=== PATIENT | female | born 1960 | race Hispanic/Latino ===

== ENCOUNTER 2020-01-28 11:46 | Emergency (ER) | payer OTHER ==
[~2020-01-28] VITALS: Ht 152.4 cm; Wt 67.6 kg
--- OUTSIDE RECORDS SUMMARY | 2020-01-28 11:47 | XMS REPORT | Clinical Summary ---
Author Author [facility] Organization [facility] ict Address Unknown Phone Unavailable Care Team Providers Care Payment Collector Name Role Phone Wen Gomez DDS 6 Allergies Comments Active Allergy Reactions Severity Noted Date Simvastatin (Bulk) Itching Low 10/04/2011 Medications End Date Status Medication Sig Dispensed Refills Start Date Active Calcium 600 mg cap Take 1,200 mg 0 by mouth daily. Active Cholecalciferol, Vitamin Take 1 0 D3, (VITAMIN D) 1,000 capsule by unit cap mouth daily. Active cetirizine (ZYRTEC) 10 mg Take 1 tablet 90 tablet 3 tabletIndications: by mouth 5 Allergic rhinitis, cause daily. unspecified Active albuterol (VENTOLIN Inhale 2 6.7 g 0 HFA,PROVENTIL HFA,PROAIR Puffs by 5 HFA) 90 mcg/actuation mouth 4 times inhalerIndications: daily as Asthma, unspecified needed for asthma severity, Wheezing or uncomplicated Shortness of Breath. Active hydroCHLOROthiazide Take 1 tablet 90 tablet 3 (HYDRODIURIL) 25 mg by mouth 6 tabletIndications: daily. Essential hypertension Active losartan (COZAAR) 50 mg Take 1 tablet 90 tablet 3 tabletIndications: by mouth 6 Essential hypertension daily. Active meclizine (ANTIVERT) 25 Take 1 tablet 30 tablet 0 mg TabIndications: BPPV by mouth 3 6 (benign paroxysmal times daily. positional vertigo), left Active ursodiol (ACTIGALL) 300 Take 1 90 capsule 5 mg capsuleIndications: capsule by 6 Primary biliary cirrhosis mouth 3 times daily. Active Problems Problem Noted Date Bilateral hand numbness: 11/30; 2 wk: med sgiven / bra jose c/exercsie advised / 12/03/2014 f/u with PCP Osteopenia: BMD: 01/29: on monse+vitD 12/03/2014 HTN (hypertension): stable on meds 11/3012/03/2014 GERD (gastroesophageal reflux disease) 12/03/2014 Impaired fasting blood sugar: 11/30; on diet / f/u wit h PCP 12/03/2014 HLD (hyperlipidemia) 09/16/2014 Primary biliary cirrhosis 04/23/2014 Foraminal stenosis of cervical region 01/30/2014 Overview: Mild right foraminal stenosis at C5-C6 DDD (degenerative disc disease), lumbar 01/30/2014 Overview: Bulging disc DM w/o complication type II: diet controlled 012 S/P colonoscopy: 10/3002/22/2012 Mitral valve regurgitation, rheumatic: 11/04/2010 Mitral stenosis Immunizations Name Administration Dates Next Due Albuterol 0.083% (3ml) 01/19/2011 Hib Haemophilus 09/16/2014 (Deferred: Vacci ne Unavailable) Influenzae Type B Influenza A (H1N1) Vac 08/11/2009 Injection Influenza Vaccine 06/26/2015, 07/16/2014, 05/2012, 07/22/2011, 06/15/2010, 07/03/2009, 07/16/2008 Ketorolac 30mg/1ml Inj 12/06/2006 (x ) MCV4 Meningococcal 09/16/2014 (Deferred: Vacci ne Unavailable) Conjugate (Menactra) PPV 23 Pneumococcal 09/16/2014, 01/21/2008 Polysaccaride Td Tetanus, diphtheria 12/17/2006 Toxoids Vaccine Tdap Tetanus, diphtheria, 03/22/2012 acellular pertussis Vaccine Triamcinolone 40mg/ml Inj 06/29/2010 Family History Medical History Relation Name Comments Heart Father Arthritis Mother Asthma Mother Heart Mother Hypertension Mother Stroke Paternal Grandmother Asthma Sister Cancer Sister breast cancer at ag e 51yo; taking chemo therapy now Hypertension Sister Relation Name Status Comments Brother Alive 4 Daughter Alive 2 Father Alive Maternal Grandfather Maternal Grandmother Alive Mother Alive Paternal Grandfather Paternal Grandmother Sister Alive 6 Sister Son Alive 1 Social History Date Tobacco Use Types Packs/Day Years Used Never Smoker Smokeless Tobacco: Never Used Tobacco Cessation: Counseling Given: No Drinks/Week oz/Week Comments Alcohol Use No Sex Assigned at Date Recorded Not on file Industry Job Start Date Occupation Not on file Not on file Not on file Travel End Travel History Travel Start No recent travel history available. Last Filed Vital Signs Not on file Plan of Treatment Health Maintenance Due Date Last Done Comments Colorectal Cancer Scrn 11/01/2012 11/01/2011, , 09/01/2008, Annual (FIT/FOBT) Age 50 Additional history exists to 75 DM Foot Exam (Yearly) 11/28/2012 11/29/2011, 11/16 Cervical Cancer Scrn (3 02/21/2015 02/22/2012, , 11/02/2011, Yrs) Additional history exists DM Retinal Exam (Yearly) 05/15/2016 05/15/2015, 0 11/29/2011 (Declined) Breast Cancer Scrn 06/09/2016 06/09/2015, 014, 03/19/2013, (Yearly) Additional history exists DM HGBA1C (Yearly) 09/21/2016 09/21/2015, 015, 03/13/2015, Additional history exists IMM Influenza Seasonal 06/18/2020 06/26/2012 Oct to November (>/= 19 yrs) Results Not on fileafter 01/27/2019 Insurance Type Payer Benefit Subscriber ID Effective Phone Address Plan / Dates Group [facility] SELF-PAY SELF-PAY xxxx 2015- [phone] [id number] [place] [address] (Work) Advance Directives Date Inactivated Comments Code Status Date Activated 03/07/2011 11:28 PM Full Code 03/01/2011 5:27 PM 02/25/2011 10:03 PM Full Code 02/22/2011 9:25 PM
--- OUTSIDE RECORDS SUMMARY | 2020-01-28 11:48 | XMS REPORT | Summary of Care ---
Author Author [facility] Organization [facility] Address Unknown Phone Unavailable Encounter HQ Marcin(FIN) [id number] Date(s): 12/18/17 - 12/18/17 [facility] [address], [address] [place] [address]- [phone] Discharge Disposition: Home or Self Care Attending Physician: Clarisse Barrera DO Vital Signs Most recent to 1 oldest [Reference Range]: Height 152.4 cm (12/18/17 8:06 AM) Temperature Oral 98.2 DegF [96.4-99.1 DegF] (12/18/17 8:06 AM) Blood Pressure 108/68 mmHg [90-140/60-90 mmHg] (12/18/17 8:06 AM) Respiratory Rate 14 BRMIN [14-20 BRMIN] (12/18/17 8:06 AM) Peripheral Pulse 53 bpm Rate [60-100 bpm] *LOW* (12/18/17 8:06 AM) Weight 65.455 kg (12/18/17 8:06 AM) Body Mass Index 28.18 m2 (12/18/17 8:06 AM) Problem List Condition Effective Dates Status Health Status Informan t BMI Active 28.0-28.9,adult(Conf irmed) Acid Active reflux(Confirmed) Hemorrhoids(Confirme Active d) Hypertension(Confirm Active ed) Fatty liver disease, Active nonalcoholic(Confirm ed) Prediabetes(Confirme Active d) Primary biliary Active cirrhosis(Confirmed) Allergies, Adverse Reactions, Alerts Substance Reaction Severity Status statins1 Active 1itching Medications hydrocortisone topical 2.5% cream 1 appl, TOP, BID, X 14 day, # 30 gm, 1 Refill(s), Pharmacy: [id number] Start Date: 12/18/17 Stop Date: 01/15/18 Status: Completed Results No data available for this section Immunizations Given and Recorded Vaccine Date Status Refusal Reason Hx influenza vaccine-unspecified 05/19/17 Recor ded Hx pneumococcal vaccine 09/16/14 Recorded Hx meningococcal vaccine1 09/18/12 Recorded tetanus-diphtheria toxoids 03/22/12 Recorded 1Result Comment: [12/14/2016 Uncharted] deferred Procedures Procedure Date Related Diagnosis Body Site Status Colonoscopy1 03/02/17 Completed Mammogram2 02/02/17 Completed Papanicolaou smear taken 2012 Completed Splenectomy 2009 Completed section Completed Hysterectomy Completed 1repeat 10 years 2normal 3x3 4does not need any more paps Social History Social History Type Response Substance Abuse Use: None. Exercise Exercise duration: 0. Employment/School Status: Employed. 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 Other: has disabled daughter with spina bifida. Alcohol Never Smoking Status Never smoker; Exposure to T obacco Smoke None; Cigarette Smoking Last 365 Days No; Reg Smoking Cessation Counseli ng No entered on: 03/19/18 Assessment and Plan No data available for this section
--- OUTSIDE RECORDS SUMMARY | 2020-01-28 11:48 | XMS REPORT | Summary of Care ---
Author Author [facility] Organization [facility] Address Unknown Phone Unavailable Encounter HQ Marcin(FIN) [id number] Date(s): 11/27/17 - 11/28/17 [facility] [address], [address] [place] [address]- [phone] Vital Signs No data available for this section Problem List Condition Effective Dates Status Health Status Informan t BMI Active 28.0-28.9,adult(Conf irmed) Acid Active reflux(Confirmed) Hemorrhoids(Confirme Active d) Hypertension(Confirm Active ed) Fatty liver disease, Active nonalcoholic(Confirm ed) Prediabetes(Confirme Active d) Primary biliary Active cirrhosis(Confirmed) Allergies, Adverse Reactions, Alerts Substance Reaction Severity Status statins1 Active 1itching Medications hydrochlorothiazide 25 mg oral tablet 12.5 mg = 0.5 tab, PO, Daily, # 90 tab, Refill(s) 1, Pharmacy: [id number] Start Date: 11/27/17 Status: Ordered losartan 50 mg oral tablet See Instructions, # 90 tab, Refill(s) 1, TAKE 1 TABLET BY MOUTH DAILY, Pharmacy: [id number] Start Date: 11/27/17 Status: Ordered ursodiol 300 mg oral capsule See Instructions, # 270 unknown unit, Refill(s) 1, TAKE 1 CAPSULE BY MOUTH 3 JUAN JOSE ES A DAY, Pharmacy: [id number] Start Date: 11/27/17 Status: Ordered Results No data available for this section Immunizations Given and Recorded Vaccine Date Status Refusal Reason Hx influenza vaccine-unspecified 05/19/17 Recor ded Hx pneumococcal vaccine 09/16/14 Recorded Hx meningococcal vaccine1 09/18/12 Recorded tetanus-diphtheria toxoids 03/22/12 Recorded 1Result Comment: [12/14/2016 Uncharted] deferred Procedures Procedure Date Related Diagnosis Body Site Status Colonoscopy1 03/02/17 Completed Mammogram2 02/02/17 Completed Papanicolaou smear taken 2012 Completed Splenectomy 2009 Completed section3 Completed Hysterectomy4 Completed 1repeat 10 years 2normal 3x3 4does not need any more paps Social History Social History Type Response Substance Abuse Use: None. Exercise Exercise duration: 0. Employment/School Status: Employed. 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 Alcohol Never Smoking Status Never smoker; Exposure to T obacco Smoke None; Cigarette Smoking Last 365 Days No; Reg Smoking Cessation Counseli ng No entered on: 12/18/17 Assessment and Plan No data available for this section
--- OUTSIDE RECORDS SUMMARY | 2020-01-28 11:48 | XMS REPORT | Summary of Care ---
Author Author [facility] Organization [facility] Address Unknown Phone Unavailable Encounter TIMOTHY Burch(DILLON) [id number] Date(s): 01/16/18 - 01/16/18 [facility] [address] [place] [address]- Encounter Diagnosis Encounter for screening mammogram for malignant neoplasm of breast (Final) - Discharge Disposition: Home or Self Care Attending Physician: Clarisse Barrera DO Referring Physician: Clarisse Barrera DO Vital Signs No data available for this section Problem List Condition Effective Dates Status Health Status Informan t BMI Active 28.0-28.9,adult(Conf irmed) Acid Active reflux(Confirmed) Hemorrhoids(Confirme Active d) Hypertension(Confirm Active ed) Fatty liver disease, Active nonalcoholic(Confirm ed) Prediabetes(Confirme Active d) Primary biliary Active cirrhosis(Confirmed) Allergies, Adverse Reactions, Alerts Substance Reaction Severity Status statins1 Active 1itching Medications No data available for this section Results No data available for this section [...] 365 Days No; Reg Smoking Cessation Counseli mattie No entered on: 12/18/17 Assessment and Plan No data available for this section
--- OUTSIDE RECORDS SUMMARY | 2020-01-28 11:48 | XMS REPORT | Continuity of Care Document ---
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 Role Phone [employer] Information [employer] Unavailable Un available Problems Problem Status Onset Date Classification Date Reported Comments Source Fatty (change of) liver, not elsewhere classified 05/01/2018 11/11/2018 [facility] [place] DX: SCREENING Active 12/27/2017 [facility] UNK Active 0 12/28/2016 [facility] ROUTINE SCREENING WILL BRING OUTSIDE F Active 12/12/2016 [facility] Hepatomegaly, not elsewhere classified 11/11/2018 [facility] [place] Overweight 11/11/2018 [facility] [place] Body mass index (BMI) 28.0-28.9, adult 11/11/2018 [facility] [place] Essential (primary) hypertension 11/11/2018 [facility] [place] Liver disease, unspecified 11/11/2018 [facility] [place] Body mass index index 25-29 - overweight (finding) Active Problem 02/26/2019 [facility], [facility] [place] Gastroesophageal reflux disease (disorder) Active Problem 02/26/2019 [facility], [facility] [place] Hemorrhoids (disorder) Active Problem 02/26/2019 [facility] [place] Hypertensive disorder, systemic arterial (disorder) Active Problem 02/26/2019 [facility], [facility] [place] Non-alcoholic fatty liver (disorder) Active Problem 07/2019 [facility], [facility] [place] Prediabetes (finding) Active Problem 02/26/2019 [facility] [place] Primary biliary cirrhosis (disorder) Active Problem 07/2019 [facility], [facility] [place] Encounter for screening mammogram for ma lignant neoplasm of breast 01/19/2018 [facility] Senile angioma (disorder) Acti ve Problem 07/2019 [facility] [place] Medications Medication Details Route Status Patient Instructions Ordering Provider Order Date Source Triamcinolone Acetonide 1 MG/ML Topical Cream 1 appl, TOP, BID, PRN For Rash, X 14 day, # 454 gm, 1 Refill(s), [id number] No Longer Active 08/08/2018 [facility] amoxicillin 500 mg oral tablet 500 mg = 1 tab, PO, BID, X 10 day, # 20 tab, 0 Refill(s), [id number] Active 03/19/2018 [facility] Brompheniramine Maleate 0.4 MG/ML / Dext romethorphan Hydrobromide 2 MG/ML / Pseudoephedrine Hydrochloride 6 MG/ML Oral Solution [Bromfed DM] 5 mL, PO, TID, PRN cough, X 14 day, # 20 0 mL, 0 Refill(s), [id number] Active 03/19/2018 [facility] omeprazole 20 mg oral delayed release capsule See Instructions, # 30 unknown unit, TAKE ONE CAPSULE BY MOUTH EVERY DAY, [id number] Active 02/19/2018 [facility] omeprazole 20 mg oral delayed release capsule 20 mg = 1 cap, PO, Daily, # 90 cap, 1 Refill(s), [id number] Inactive 02/19/2018 [facility] Hydrocortisone 25 MG/ML Topical Cream 1 appl, TOP, BID, X 14 day, # 30 gm, 1 Refill(s), [id number] No Longer Active 12/18/2017 [facility] omeprazole 20 mg oral delayed release capsule 20 mg = 1 cap, PO, Daily, # 30 cap, 1 Refill(s), [id number] No Longer Active 12/17/2017 [facility] ursodiol 300 mg oral capsule S ee Instructions, # 270 unknown unit, Refill(s) 1, TAKE 1 CAPSULE BY MOUTH 3 TIMES A DAY, [id number] Active 11/27/2017 [facility] Hydrochlorothiazide 25 MG Oral Tablet 12.5 mg = 0.5 tab, PO, Daily, # 90 tab, Refill(s) 1, [id number] Active 11/27/2017 [facility] losartan 50 mg oral tablet See Instructions, # 90 tab, Refill(s) 1, TAKE 1 TABLET BY MOUTH DAILY, [facility]: [facility]/pharm[facility] #[id number] Active 11/27/2017 [facility] Hydrochlorothiazide 25 mg, PO, Daily, 0 Refill(s) Active 03/02/2017 [facility] Albuterol 0.833 MG/ML / Ipratropium Brom porfirio 0.167 MG/ML Inhalant Solution 3 mL, Route: NEB, Dosing Weight 62.727, kg, ONCE, STAT, Start date: 03/02/17 8:06:00 CDT, Stop date: 03/02/17 8:06:00 CDT Inactive 03/02/2017 [facility] Sodium Chloride 0.154 MEQ/ML Injectable Solution 500 mL, Rate: 25 ml/hr, Infuse over: 20 hr, Route: IV, Dosing Weight 62.727 kg, Total Volume: 500, Start date: 03/02/17 8:06:00 CDT, Duration: 30 day, Stop date: 04/01/17 8:05:00 CDT Inactive 03/02/2017 [facility] Allergies, Adverse Reactions, Alerts Substance Category Reaction Severity Reaction type Status Date Reported Comments Source statins<sup>1</sup> Assertion Drug allergy Active itch ing [facility] Immunizations Immunization Date Given Site Status Last Updated Comments Source Hx influenza vaccine-unspecified 05/19/2017 completed [facility] Hx pneumococcal vaccine 2013 completed [facility] Hx meningococcal vaccine<sup>1</sup> 09/18/2012 [facility] Result Comment: [12/14/2016 Uncharted] [facility] theast tetanus-diphtheria toxoids 01/2012 completed [facility] Results No Data Provided for This Section Pathology Reports No Data Provided for This Section Diagnostic Reports Report Value Date Source Abdomen w/wo contrast MRI EVARISTO CATION: - K76.0 Fatty (change of) liver, not elsewhere classified, E66.3 Overweight,R16.0 Hepatomegaly, not elsewhere classified ,I10 Essential (primary) hypertension. COMPARISON: Abdomen ultrasound dated 02/22/2008 TECHNIQUE: Multiplanar multisequential MR images of the abdomen were obtained with and without intravenous contrast administration. Contrast: 13 mL Dotarem FINDINGS: Lines and tubes: None. Lower thorax: Unremarkable. Liver and biliary tree: 4 round and oval lesions are identified along the capsule of the right hepatic lobe. There are 3 located in segment 7 measuring approximately 2.8 x 3.4 cm, 1.9 x 1.9 cm, and 1.2 x 1.8 cm in axial dimension. There is a smaller 1 cm lesion in segment 7/6. There is also a 1 cm lesion in the left hepatic lobe along the falciform ligament in segment 3. The lesions are mildly T2 hyperintense and mildly T1 hypointense. They demonstrate diffuse early arterial enhancement, but subsequently become isointense to the liver. A T1 hyperintense capsule persists on all phases. Gallbladder: Normal. No MR evidence of gallstones. Pancreas: Normal. Spleen: Absent. 1.2 cm enhancing nodule in the splenectomy bed Adrenals: Normal. Kidneys and proximal ureters: Normal. No hydronephrosis. Gastrointestinal tract: Unremarkable with normal caliber. Peritoneum and retroperitoneum: No ascites or free air. 2.7 x 1.8 cm enhancing nodule in the anterior mesentery. Lymph nodes: No pathologic adenopathy. Vasculature: Unremarkable. Bones: No acute abnormality. Soft tissues: Unremarkable. IMPRESSION: 4 well-circumscribed nodules along the m argin of the liver as described. These may in fact be located on the liver as opposed to in the liver in which case they are implants. 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 Correlate clinically. If there is no other history of malignancy, these can likely be followed. Tissue sampling would confirm the diagnosis, although this may be technically difficult. 04/24/2018 [facility] Rob[facility] Abdomen complete US Abdomen co mplete US 02/21/2018 10:13 AM CDT CLINICAL: K74.3 Primary biliary cirrhosis COMPARISON IMAGING: None. FINDINGS: Liver: Measures 18.0 cm in length (normal: 13-17 cm). Echogenicity is unremarkable . 2 hypoechoic regions are seen within the liver, measuring 4.1 x 3.8 x 3.0 cm and 0.9 x 0.9 x 0.9 cm. Short-term follow-up MRI of the abdomen with liver mass protocol is recommended. Portal vein is patent with hepatopetal flow. Biliary: No gallstones, gallbladder wall thickening, or sonographic Velasco's sign . Common bile duct measures 0.4 mm in diameter. Pancreas: No focal lesion. However, certain portions are obscured by overlying bowel gas and unable to be evaluated. Spleen: Measures 6.4 cm in maximal dimension (normal < 13 cm). No focal lesion is seen. Kidneys: Right kidney measures 11.1 cm in length and shows normal echotexture. No right hydronephrosis is seen. Left kidney measures 11.3 cm in length and shows normal echotexture. No left hydronephrosis is seen. Vascular: Visualized portions of the aorta and IVC are patent. IMPRESSION: 1. Gallbladder and biliary ductal system are unremarkable. 2. 2 hypoechoic regions are seen within the liver, measuring 4.1 x 3.8 x 3.0 cm and 0.9 x 0.9 x 0.9 cm. Short-term follow-up MRI of the abdomen with liver mass protocol is recommended. 02/21/2018 [facility] [place] Breast Mammo Scrn PUAL incl CAD MA BILATERAL DIGITAL SCREENING MAMMOGRAM WITH CAD: 01/16/2018 Current study was evaluated with a Computer Aided Detection (CAD) system. COMPARISON:Comparison is made to exams dated: 01/13/2017 mammogram - [facility], 06/09/2015 mammogram, 04/04/2014 mammogram, and 09/06/2011 mammogram. TECHNIQUE: Mammographic views were obtained using digital acquisition. [employer] Version 1.3 was utilized for computer aided detection. FINDINGS: There are scattered fibroglandular densities in both breasts. Benign appearing densities are noted in both breasts. No significant masses, calcifications, or other findings are seen in either breast. There has been no significant interval change. IMPRESSION: BENIGN RECOMMENDATION:There is no mammographic evidence of malignancy. A 1 year screening mammogram is recommended.(01/17/2019) This exam was interpreted at [id number] for [facility]. Ivan aguirre/tahir:01/16/2018 15:38:38 Nutrition Specialist(s): Emma Gamboa, [facility] letter sent: BI-RADS 1/2 Mammogram BI-RADS: 2 Benign 01/16/2018 [facility] Breast Mammo Scrn PAUL incl CAD MA - BREAST MAMMO SCRN PAUL INCL CAD MA BILATERAL DIGITAL SCREENING MAMMOGRAM WITH CAD: 01/13/2017 CLINICAL: Routine. Current study was evaluated with a Computer Aided Detection (CAD) system. Comparison is made to exams dated: 06/09/2015 mammogram, 04/04/2014 mammogram and 09/06/2011 mammogram. There are scattered fibroglandular densities in both breasts. No significant masses, calcifications, or other findings are seen in either breast. There has been no significant interval change. IMPRESSION: NEGATIVE There is no mammographic evidence of malignancy. A 1 year screening mammogram is recommended. Ivan aguirre/tahir:02/02/2017 08:28:22 Nutrition Specialist: Pratibha Patel, [facility] This exam was dictated and interpreted by [id number] for [facility] [place]. letter sent: Normal exam Mammogram BI-RADS: 1 Negative 01/13/2017 [facility] Consultation Notes No Data Provided for This Section Discharge Summaries No Data Provided for This Section History and Physicals No Data Provided for This Section Vital Signs Vital Sign Value Date Comments Source Weight 66.364 08/08/2018 [facility] BMI Calculated 28.57 08/08/2018 [facility] Systolic (mm Hg) 121 08/08/2018 [facility] Diastolic (mm Hg) 71 08/08/2018 [facility] Respitory Rate 14 08/08/2018 Medical [facility] Heart Rate 56 08/08/2018 Medical [facility] Height 152.4 cm 08/08/2018 [facility] Weight 67.273 03/19/2018 [facility] Height 152.4 cm 03/19/2018 [facility] BMI Calculated 28.96 03/19/2018 [facility] Temperature Oral (F) 98.2 F 03/19/2018 [facility] Respitory Rate 14 03/19/2018 [facility] Systolic (mm Hg) 123 03/19/2018 [facility] Diastolic (mm Hg) 68 03/19/2018 [facility] Heart Rate 63 03/19/2018 [facility] Height 152.4 cm 12/18/2017 [facility] Weight 65.455 12/18/2017 [facility] BMI Calculated 28.18 12/18/2017 [facility] Systolic (mm Hg) 108 12/18/2017 [facility] Diastolic (mm Hg) 68 12/18/2017 [facility] Temperature Oral (F) 98.2 F 12/18/2017 [facility] Heart Rate 53 12/18/2017 [facility] Respitory Rate 14 12/18/2017 [facility] BMI Calculated 28.38 12/12/2017 [facility] Weight 65.909 12/12/2017 [facility] Height 152.4 cm 12/12/2017 [facility] Systolic (mm Hg) 131 12/12/2017 [facility] Diastolic (mm Hg) 75 12/12/2017 [facility] Heart Rate 69 12/12/2017 [facility] Respitory Rate 14 12/12/2017 [facility] Temperature Oral (F) 98.3 F 12/12/2017 [facility] Respitory Rate 21 03/02/2017 [facility] Systolic (mm Hg) 101 03/02/2017 [facility] Diastolic (mm Hg) 58 03/02/2017 [facility] Systolic (mm Hg) 86 03/02/2017 [facility] Diastolic (mm Hg) 55 03/02/2017 [facility] Respitory Rate 15 03/02/2017 [facility] Systolic (mm Hg) 86 03/02/2017 [facility] Diastolic (mm Hg) 55 03/02/2017 [facility] Respitory Rate 17 03/02/2017 [facility] Heart Rate 62 02/27/2017 [facility] Temperature Oral (F) 98.1 F 02/27/2017 [facility] Height 157.48 cm 02/27/2017 [facility] BMI Calculated 25.29 02/27/2017 [facility] Weight 62.727 02/27/2017 [facility] Encounters Location Location Details Encounter Type Encounter Number Reason For Visit Attending Provider ADM Date DC Date Status Source Outpatient [id number] ARUNA COLESH 12/05/2016 [facility] Outpatient [id number] ARUNA COLESH 12/08/2016 [facility] Outpatient [id number] ARUNA BRUCE 01/03/2017 [facility] Outpatient [id number] Aruna Colesh 01/13/2017 01/14/2017 [facility] Bedded Outpatient [id number] Salvador Corley 03/02/2017 03/02/2017 [facility] Outpatient [id number] ARUNA COLESH 05/23/2017 Active [facility] Phone Message [id number] 11/27/2017 11/29/2017 [facility] Outpatient [id number] ARUNA COLESH 12/12/2017 Active [facility] Outpatient [id number] Aruna Bruce 12/12/2017 12/13/2017 Medical [facility] Outpatient [id number] ARUNA COLESH 12/18/2017 Active [facility] Outpatient [id number] Aruna Colesh 12/18/2017 12/19/2017 [facility] Group [facility] Outpatient [id number] Aruna Colesh 01/16/2018 01/17/2018 [facility]patient Imaging - [place] [facility] Services [id number] Nish Melendez 02/21/2018 02/22/2018 [facility] [place] Outpatient [id number] ARUNA COLESH 03/19/2018 Active [facility] Outpatient [id number] Aruna Colesh 03/19/2018 03/20/2018 Medical [facility] Outpatient Imaging - [place] Outpt Diag Services [id number] Nish Melendez 04/24/2018 04/25/2018 [facility] [place] Outpatient [id number] ARUNA COLESH 08/08/2018 Active [facility] Outpatient [id number] Aruna Colesh 08/08/2018 08/09/2018 Medical [facility] Procedures Procedure Code Date Perfomer Comments Source Colonoscopy<sup>1, 2</sup> [id number] 01/19/2019 repeat 10 yearsrepeat 10 years Medical [facility] Colonoscopy<sup>1</sup> [id number] 03/02/2017 repeat 10 years [facility], [facility] Rob[facility] [place] [facility] Mammogram<sup>2</sup> [id number] 02/02/2017 normal [facility], [facility] [place] [facility] Mammogram<sup>3</sup> [id number] 02/02/2017 normal [facility] Mammogram<sup>1</sup> [id number] 07/19/2015 normal [facility] Papanicolaou smear taken 15180 8002 09/18/2012 [facility], JOHN Robbins, [place] [facility] Splenectomy [id number] 09/18/2009 [facility], OPIVaishnavi [facility], [place] section<sup>2</sup> 1 [id number] x3 [place] Hysterectomy<sup>3</sup> 87802 6002 does not n eed any more paps [place] section<sup>3</sup> 1 [id number] x3 [facility], OPIVaishnavi [place], [place] [facility] Hysterectomy<sup>4</sup> 77247 6002 does not n eed any more paps [facility], [facility] [place], [place] [facility] section<sup>4</sup> 1 [id number] x3 [facility] Hysterectomy<sup>5</sup> 26525 6002 does not n eed any more paps Medical [facility] Assessment and Plan No Data Provided for This Section Plan of Care No Data Provided for This Section Social History Social History Date Source Social History TypeResponse Substance Abuse Use: None. Exercise Exercise duration: 0. Employment/School Status: Employed. 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 Alcohol Never Smoking Status Never smoker; Exposure to Tobacco Smoke None; Cigarette Smoking Last 365 Days No; Reg Smoking Cessation Counseling No entered on: 12/18/17 02/27/2017 [facility] Social History TypeResponse Substance Abuse Use: None. Exercise Exercise duration: 0. Employment/School Status: Employed. 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 Alcohol Never Smoking Status Never smoker; Exposure to Tobacco Smoke None; Cigarette Smoking Last 365 Days No; Reg Smoking Cessation Counseling No entered on: 08/08/18 02/27/2017 [facility] Social History TypeResponse Substance Abuse Use: None. Exercise Exercise duration: 0. Employment/School Status: Employed. 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 Alcohol Never Smoking Status Never smoker; Exposure to Tobacco Smoke None; Cigarette Smoking Last 365 Days No; Reg Smoking Cessation Counseling No entered on: 08/08/18 02/27/2017 [facility] Family History No Data Provided for This Section Advance Directives No Data Provided for This Section Functional Status No Data Provided for This Section
--- OUTSIDE RECORDS SUMMARY | 2020-01-28 11:48 | XMS REPORT | Summary of Care ---
Author Author [facility] Organization [facility] Address Unknown Phone Unavailable Encounter TIMOTHY Burch(FIN) [id number] Date(s): 03/19/18 - 03/19/18 [facility] [address], [address] [place] [address]- [phone] Discharge Disposition: Home or Self Care Attending Physician: Clarisse Barrera DO Vital Signs Most recent to 1 oldest [Reference Range]: Height 152.4 cm (03/19/18 3:41 PM) Temperature Oral 98.2 DegF [96.4-99.1 DegF] (03/19/18 3:41 PM) Blood Pressure 123/68 mmHg [90-140/60-90 mmHg] (03/19/18 3:41 PM) Respiratory Rate 14 BRMIN [14-20 BRMIN] (03/19/18 3:41 PM) Peripheral Pulse 63 bpm Rate [60-100 bpm] (03/19/18 3:41 PM) Weight 67.273 kg (03/19/18 3:41 PM) Body Mass Index 28.96 m2 (03/19/18 3:41 PM) Problem List Condition Effective Dates Status Health Status Informan t BMI Active 28.0-28.9,adult(Conf irmed) Acid Active reflux(Confirmed) Hemorrhoids(Confirme Active d) Hypertension(Confirm Active ed) Fatty liver disease, Active nonalcoholic(Confirm ed) Prediabetes(Confirme Active d) Primary biliary Active cirrhosis(Confirmed) Allergies, Adverse Reactions, Alerts Substance Reaction Severity Status statins1 Active 1itching Medications amoxicillin 500 mg oral tablet 500 mg = 1 tab, PO, BID, X 10 day, # 20 tab, 0 Refill(s), Pharmacy: [facility]/pharmacy #[id number] Start Date: 03/19/18 Stop Date: 03/29/18 Status: Ordered Bromfed DM oral syrup 5 mL, PO, TID, PRN cough, X 14 day, # 200 mL, 0 Refill(s), Pharmacy: [facility]/pharmac y #[id number] Start Date: 03/19/18 Stop Date: 04/02/18 Status: Ordered Results No data available for [...] Exercise Exercise duration: 0. Employment/School Status: Employed. 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 Alcohol Never Smoking Status Never smoker; Exposure to T obacco Smoke None; Cigarette Smoking Last 365 Days No; Reg Smoking Cessation Counseli ng No entered on: 03/19/18 Assessment and Plan No data available for this section
--- OUTSIDE RECORDS SUMMARY | 2020-01-28 11:48 | XMS REPORT | Summary of Care ---
Author Author [facility] Organization [facility] Address Unknown Phone Unavailable Encounter TIMOTHY Burch(FIN) [id number] Date(s): 12/12/17 - 12/12/17 [facility] [address], [address] [place] [address]- [phone] Discharge Disposition: Home or Self Care Attending Physician: Clarisse Barrera DO Vital Signs Most recent to 1 oldest [Reference Range]: Height 152.4 cm (12/12/17 3:53 PM) Temperature Oral 98.3 DegF [96.4-99.1 DegF] (12/12/17 3:53 PM) Blood Pressure 131/75 mmHg [90-140/60-90 mmHg] (12/12/17 3:53 PM) Respiratory Rate 14 BRMIN [14-20 BRMIN] (12/12/17 3:53 PM) Peripheral Pulse 69 bpm Rate [60-100 bpm] (12/12/17 3:53 PM) Weight 65.909 kg (12/12/17 3:53 PM) Body Mass Index 28.38 m2 (12/12/17 3:53 PM) Problem List Condition Effective Dates Status Health Status Informan t BMI Active 28.0-28.9,adult(Conf irmed) Acid Active reflux(Confirmed) Hemorrhoids(Confirme Active d) Hypertension(Confirm Active ed) Fatty liver disease, Active nonalcoholic(Confirm ed) Prediabetes(Confirme Active d) Primary biliary Active cirrhosis(Confirmed) Allergies, Adverse Reactions, Alerts Substance Reaction Severity Status statins1 Active 1itching Medications omeprazole 20 mg oral delayed release capsule See Instructions, # 30 unknown unit, TAKE ONE CAPSULE BY MOUTH EVERY DAY, Pharma [facility]: [facility] #[id number] Start Date: 02/19/18 Status: Ordered omeprazole 20 mg oral delayed release capsule 20 mg = 1 cap, PO, Daily, # 30 cap, 1 Refill(s), Pharmacy: [facility]/pharmacy #[id number] Start Date: 12/17/17 Stop Date: 02/19/18 Status: Completed omeprazole 20 mg oral delayed release capsule 20 mg = 1 cap, PO, Daily, # 90 cap, 1 Refill(s), Pharmacy: [facility]/pharmacy #[id number] Start Date: 02/19/18 Stop Date: 02/19/18 Status: Completed Results No data available for [...]
--- OUTSIDE RECORDS SUMMARY | 2020-01-28 11:48 | XMS REPORT | Summary of Care ---
Author Author [facility] - [facility] Organization [facility] - [facility] Address Unknown Phone Unavailable Encounter HQ Marcin(FIN) [id number] Date(s): 04/24/18 - 04/24/18 [facility] Outpatient Imaging - [place] [address], [place] [address] [phone] Encounter Diagnosis Fatty (change of) liver, not elsewhere classified (Final) - 04/30/18 Hepatomegaly, not elsewhere classified (Final) - Overweight (Final) - Body mass index (BMI) 28.0-28.9, adult (Final) - Essential (primary) hypertension (Final) - Liver disease, unspecified (Final) - Discharge Disposition: Home or Self Care Attending Physician: Nish Melendez MD Referring Physician: Nish Melendez MD Vital Signs No data available for this section Problem List Condition Effective Dates Status Health Status Informan t BMI Active 28.0-28.9,adult(Conf irmed) Acid Active reflux(Confirmed) Hemorrhoids(Confirme Active d) Hypertension(Confirm Active ed) Fatty liver disease, Active nonalcoholic(Confirm ed) Prediabetes(Confirme Active d) Primary biliary Active cirrhosis(Confirmed) [place] Active angioma(Confirmed) Allergies, Adverse Reactions, Alerts Substance Reaction Severity [...] Smoking Cessation Counseli ng No entered on: 08/08/18 Assessment and Plan No data available for this section
--- OUTSIDE RECORDS SUMMARY | 2020-01-28 11:48 | XMS REPORT | Summary of Care ---
Author Author [facility] Organization [facility] Address Unknown Phone Unavailable Encounter HQ Marcin(FIN) [id number] Date(s): 08/08/18 - 08/08/18 [facility] [address] [place] [address]- Discharge Disposition: Home or Self Care Attending Physician: Clarisse Barrera DO Vital Signs Most recent to 1 oldest [Reference Range]: Height 152.4 cm (08/08/18 10:33 AM) Blood Pressure 121/71 mmHg [90-140/60-90 mmHg] (08/08/18 10:33 AM) Respiratory Rate 14 BRMIN [14-20 BRMIN] (08/08/18 10:33 AM) Peripheral Pulse 56 bpm Rate [60-100 bpm] *LOW* (08/08/18 10:33 AM) Weight 66.364 kg (08/08/18 10:33 AM) Body Mass Index 28.57 m2 (08/08/18 10:33 AM) Problem List Condition Effective Dates Status Health Status Informan t BMI Active 28.0-28.9,adult(Conf irmed) Acid Active reflux(Confirmed) Hemorrhoids(Confirme Active d) Hypertension(Confirm Active ed) Fatty liver disease, Active nonalcoholic(Confirm ed) Prediabetes(Confirme Active d) Primary biliary Active cirrhosis(Confirmed) [place] Active angioma(Confirmed) Allergies, Adverse Reactions, Alerts Substance Reaction Severity Status statins1 Active 1itching Medications triamcinolone topical 0.1% cream 1 appl, TOP, BID, PRN For Rash, X 14 day, # 454 gm, 1 Refill(s), Pharmacy: [id number] Start Date: 08/08/18 Stop Date: 09/05/18 Status: Completed Results No data available for this section Immunizations Given and Recorded Vaccine Date Status Refusal Reason Hx influenza vaccine-unspecified 05/19/17 Recor ded Hx pneumococcal vaccine 09/16/14 Recorded Hx meningococcal vaccine1 09/18/12 Recorded tetanus-diphtheria toxoids 03/22/12 Recorded 1Result Comment: [12/14/2016 Uncharted] deferred Procedures Procedure Date Related Diagnosis Body Site Status Colonoscopy1, 2 01/19/19 Completed Mammogram3 02/02/17 Completed Papanicolaou smear taken 2012 Completed Splenectomy 2009 Completed section Completed Hysterectomy Completed 1repeat 10 years 2repeat 10 years 3normal 4x3 5does not need any more paps Social History Social History Type Response Substance Abuse Use: None. Exercise Exercise duration: 0. Employment/School Status: Employed. 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 Alcohol Never Smoking Status Never smoker; Exposure to T obacco Smoke None; Cigarette Smoking Last 365 Days No; Reg Smoking Cessation Counseli ng No entered on: 08/08/18 Assessment and Plan No data available for this section
--- OUTSIDE RECORDS SUMMARY | 2020-01-28 11:48 | XMS REPORT | Summary of Care ---
Author Author [facility] Organization [facility] Address Unknown Phone Unavailable Encounter HQ Encntr_alias(FIN) [id number] Date(s): 01/13/17 - 01/13/17 [facility] [address] [place] [address]- [phone] Discharge Disposition: Home or Self Care Attending Physician: Clarisse Barrera DO Referring Physician: Clarisse Barrera DO Vital Signs No data available for this section Problem List No data available for this section Allergies, Adverse Reactions, Alerts No data available for this section Medications No data available for this section Results No data available for this section Immunizations No data available for this section Procedures No data available for this section Social History No data available for this section Assessment and Plan No data available for this section
--- OUTSIDE RECORDS SUMMARY | 2020-01-28 11:48 | XMS REPORT | Summary of Care ---
Author Author [facility] Organization [facility] Address Unknown Phone Unavailable Encounter TIMOTHY Burch(DILLON) [id number] Date(s): 03/02/17 - 03/02/17 [facility] [address] [place] [address]- Discharge Disposition: Home or Self Care Attending Physician: Salvador Corley MD Referring Physician: Salvador Corley MD Vital Signs 1 2 3 Most recent to oldest [Reference Range]: 157.48 cm (02/27/17 3:46 PM) Height 98.1 DegF (02/27/17 3:56 PM) Temperature Oral [96.4-99.1 DegF] 101/58 mmHg (03/02/17 10:30 AM) 86/55 mmHg *LOW* (03/02/17 10:17 AM) 86/55 mmHg *LOW* (03/02/17 10:15 AM) Blood Pressure [90-140/60-90 mmHg] 21 BRMIN *HI* (03/02/17 10:30 AM) 15 BRMIN (03/02/17 10:15 AM) 17 BRMIN (03/02/17 10:00 AM) Respiratory Rate [14-20 BRMIN] 62 bpm (02/27/17 3:56 PM) Peripheral Pulse Rate [60-100 bpm] 62.727 kg (02/27/17 3:46 PM) Weight 25.29 m2 (02/27/17 3:46 PM) Body Mass Index Problem List Condition Effective Dates Status Health Status Informan t Acid Active reflux(Confirmed) Cirrhosis, primary Active biliary(Confirmed) HTN Active (hypertension)(Confi rmed) Hypertension(Confirm Active ed) Fatty liver disease, Active nonalcoholic(Confirm ed) Prediabetes(Confirme Active d) Allergies, Adverse Reactions, Alerts Substance Reaction Severity Status statins1 Active 1itching Medications albuterol-ipratropium 2.5-0.5 mg inhalation solution 3 mL, Route: NEB, Dosing Weight 62.727, kg, ONCE, STAT, Start date: 03/02/17 8:0 6:00 CDT, Stop date: 03/02/17 8:06:00 CDT Start Date: 03/02/17 Stop Date: 03/02/17 Status: Discontinued hydrochlorothiazide 25 mg, PO, Daily, 0 Refill(s) Start Date: 03/02/17 Status: Ordered Sodium Chloride 0.9% IV 500 mL 500 mL, Rate: 25 ml/hr, Infuse over: 20 hr, Route: IV, Dosing Weight 62.727 kg, Total Volume: 500, Start date: 03/02/17 8:06:00 CDT, Duration: 30 day, Stop date : 04/01/17 8:05:00 CDT Start Date: 03/02/17 Stop Date: 03/02/17 Status: Discontinued Results No data available for this section Immunizations Given and Recorded Vaccine Date Status Refusal Reason Hx meningococcal vaccine1 09/18/12 Recorded Hx pneumococcal vaccine 09/16/14 Recorded tetanus-diphtheria toxoids 03/22/12 Recorded 1Result Comment: [12/14/2016 Uncharted] deferred Procedures Procedure Date Related Diagnosis Body Site Mammogram1 07/19/15 Papanicolaou smear taken 2012 Splenectomy 2009 section2 Hysterectomy3 1normal 2x3 3does not need any more paps Social History Social History Type Response Substance Abuse Use: None. Exercise Exercise duration: 0. Employment/School Status: Employed. 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 Other: has disabled daughter with spina bifida. Alcohol Never Smoking Status Never smoker; Exposure to T obacco Smoke None; Cigarette Smoking Last 365 Days No; Reg Smoking Cessation Counseli ng No Assessment and Plan No data available for this section
--- NOTE | 2020-01-28 12:14 | NUR ---
interpretur [id number] used when interviewing patient
--- NOTE | 2020-01-28 12:17 | Emergency Department Note ---
History of Present Illnes History of Present Illness Chief Complaint: hurting tail bone and right knee Stated Complaint: FALL, BACK AND LEG PAIN History of Present Illness This is a 59 year old female hx HTN, GERD, accidentally fell yesterday in a grocery store, slipped on a slippery stuff ( a grape). She landed on her right knee then sat on her tail bone. She was told by her PCP to come to ER for higher level of care Historian: Patient History limited by: language barrier Flake Miller Helper Required: Yes Onset (how long ago): day(s) (yesterday) Location: tail bone, right knee Quality: sharp Radiation: non-radiation Severity: moderate (5/10) Duration (how long): day(s) (1 day) Progression: improving Chronicity: new Context: trauma/injury Relieving factors: immobilization, medication, rest Exacerbating factors: movement Associated symptoms: denies other symptoms Treatments prior to arrival: none Previous service: other (sent over by her PCP for higher level of care) Past Medical/Family History Physician Review I have reviewed the patient's past medical and family history. Any updates have been documented here. Past Medical History Recent Fever: No Clinical Suspicion of Infectio: No New/Unexplained Change in Ment: No Past Medical History: Hypertension Other Medical History: GERD Past Surgical History: Hysterectomy Social History Smoking Cessation: Never Smoker Alcohol Use: None Any Illegal Drug Use: No TB Exposure/Symptoms: No Physically hurt or threatened: No Family History Family history of heart diseas: No Other Last Tetanus: unknown Any Pre-Existing Lines (PICC,: No Review of Systems Review of Systems Constitutional: no symptoms EENTM: no symptoms Cardiovascular: no symptoms Gastointestinal/Abdominal: no symptoms Genitourinary: no symptoms Musculoskeletal: back pain (lower back pain), joint pain (right knee pain, lower tail bone pain), joint swelling (right knee swollen) Integumentary: no symptoms Neurological: no symptoms Psychological: no symptoms Endocrine: no symptoms Hematological/Lymphatic: no symptoms Review of other systems All other systems reviewed and negative. Physical Exam Physical Exam CONSTITUTIONAL Constitutional: well-developed, well-nourished HENT HENT: normocephalic, atraumatic, oropharynx clear/moist, nose normal HENT - Ear: left ext ear normal, right ext ear normal EYES Eyes: PERRL, conjunctivae normal NECK Neck: ROM normal PULMONARY Pulmonary: effort normal, breath sounds normal CARDIOVASCULAR Cardiovascular: regular rhythm, heart sounds normal, capillary refill normal, normal rate GASTROINTESTINAL Abdominal: soft, nontender, bowel sounds normal GENITOURINARY Genitourinary: exam deferred SKIN Skin: warm, dry, other (small abrasion and ecchymosis right knee) MUSCULOSKELETAL Musculoskeletal: tenderness, swelling, other (right knee swollen, small abrasion, FROM, tender on the tail bone, no opened wound) NEUROLOGICAL Neurological: alert, oriented x 3, no gross motor or sensory deficits PSYCHOLOGICAL Psychiatric/behavioral: mood/affect normal, judgement normal Results Imaging Y: Yes Impressions no fracture elbow, no fracture tail bones Diagnostics Tests Diagnostic test(s) reviewed: Yes Critical Care Time Subsequent provider not a critical care Clinical Decision Tools HEART Score Another reason for symptoms: HEART score not applicable Assessment & Plan Assessment & Plan Problems: (1) Acute pain due to trauma (2) Contusion of right knee (3) Sacral contusion Depart Disposition: HOME, SELF-long term Meds Active Scripts Ibuprofen (MOTRIN) 200 Mg Tab, 200 MG PO 5XD PRN for MODERATE PAIN (4-6), #60 TAB Prov:PORSHA WELLS MD 01/28/20 Tramadol Hcl/Acetaminophen (ULTRACET TABLET) 1 Each Tablet, 37.5-325 TAB PO 5XD PRN for MUSCLE SPASMS, #30 Prov:PORSHA WELLS MD 01/28/20 Attestation Medications in the ED AIRPORT SK[employer]ED [employer]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
[2020-01-28] MEDS ORDERED: ULTRACET TABLE1 EACH PO (12:30)
[2020-01-28] MEDS ORDERED: MOTRIN200 MG PO (12:30)
--- NOTE | 2020-01-29 09:22 | Diagnostic Imaging Report ---
Exam: Right knee 2 views History: Fall Comparison: None. Findings: No fracture or malalignment. Joint spaces preserved. Prepatellar swelling. Impression: No acute osseous abnormality Prepatellar swelling Signed by: Dr. Quentin Hendrix M.D. on 01/29/2020 9:17 AM
--- NOTE | 2020-01-29 09:22 | Diagnostic Imaging Report ---
Exam: Sacrococcyx 2 views History: Fall Comparison: None. Findings: No displaced fracture. Anteriorly angulated distal coccyx. Visualized joints unremarkable. Impression: No acute osseous abnormality Signed by: Dr. Quentin Hendrix M.D. on 01/29/2020 9:18 AM
== END 2020-01-28 14:15 | disposition home or self-care (01) ==
LOC: FSED 11:46
DX: S80.01XA Contusion of right knee, initial encounter (principal); M25.561 Pain in right knee; M25.461 Effusion, right knee; M54.5 Low back pain; S30.0XXA Contusion of lower back and pelvis, initial encounter; W01.0XXA Fall on same level from slipping, tripping and stumbling without subsequent striking against object, initial encounter; Y93.01 Activity, walking, marching and hiking; Y92.512 Supermarket, store or market as the place of occurrence of the external cause
CPT/HCPCS: 72220; 99284

== ENCOUNTER → 2020-08-24 | Emergency (ER) | payer OTHER ==
[~2020-08-24] VITALS: Ht 152.4 cm; Wt 67.6 kg
[~2020-08-24] MED LIST: AZITHROMYCIN250 MG PO; CEFDINIR300 MG PO; CEFTRIAXONE SOD 1 GM/NS 50 ML 50 ML IV ONE; DEXAMETHASONE SOD PHOS 10 MG/1 ML VIAL IV ONE; DEXAMETHASONE SOD PHOS INJ 4 MG/ML VIAL ONE; DEXAMETHASONE4 MG PO; KETOROLAC TROMETHAMINE 30 MG/ML VIAL IV ONE; KETOROLAC TROMETHAMINE 30 MG/ML VIAL ONE; MOTRIN200 MG PO; PROVENTIL HFA6.7 GM INH; SODIUM CHLORIDE 0.9% 1000ML 1,000 ML IV STA; SODIUM CHLORIDE 0.9% 1000ML 1,000 ML ONE; TESSALON PERLE100 MG PO; TYLENOL # 31 EA PO; ULTRACET TABLE1 EACH PO
== END | disposition home or self-care (01) ==
LOC: FSED 18:50
DX: U07.1 COVID-19 (principal); R06.02 Shortness of breath; R05 Cough; R51.9 Headache, unspecified
CPT/HCPCS: 71046; 99283; J0696; J1100 ×2; J1885; J7030

== ENCOUNTER 2020-08-26 04:28 | Emergency (ER) | payer OTHER ==
[~2020-08-26] VITALS: Ht 152.4 cm; Wt 67.6 kg
[~2020-08-26 04:28] MED LIST changes: -CEFTRIAXONE SOD 1 GM/NS 50 ML 50 ML IV ONE; -DEXAMETHASONE SOD PHOS 10 MG/1 ML VIAL IV ONE; -DEXAMETHASONE SOD PHOS INJ 4 MG/ML VIAL ONE; -KETOROLAC TROMETHAMINE 30 MG/ML VIAL IV ONE; -KETOROLAC TROMETHAMINE 30 MG/ML VIAL ONE; -SODIUM CHLORIDE 0.9% 1000ML 1,000 ML IV STA; -SODIUM CHLORIDE 0.9% 1000ML 1,000 ML ONE; -TESSALON PERLE100 MG PO
[2020-08-26] MEDS ORDERED: TESSALON PERLE100 MG PO (05:28)
[2020-08-26 06:01] VITALS: BP 154/82
== END 2020-08-26 06:02 | disposition home or self-care (01) ==
LOC: ER 04:39
DX: U07.1 COVID-19 (principal); R05 Cough; I10 Essential (primary) hypertension; K76.9 Liver disease, unspecified; K21.9 Gastro-esophageal reflux disease without esophagitis
CPT/HCPCS: 99282